=== PATIENT | male | born 1970 | race Caucasian/White ===

== ENCOUNTER 2017-01-15 18:12 | Emergency (ER) | payer BC ==
[~2017-01-15] VITALS: Ht 177.8 cm; Wt 91.0 kg
[2017-01-15 18:13] VITALS: Ht 177.8 cm; Wt 91.0 kg
[2017-01-15] MEDS ORDERED: ONDANSETRON INJ 2 MG/ML 2 ML VIAL IV STA (18:22)
[2017-01-15] MEDS ORDERED: MoRPHine SULFATE 4 MG/ML 1 ML CARP\\VIAL IV STA ×4 (18:22→21:41)
[2017-01-15 18:44] LABS: BASO % 0.1 %; BASO ABS # 0.01 K/uL (0-0.2); COMPLETE YES; EOS % 0.2 %; HEMATOCRIT 43.3 % (42-52); IG% 0.2 %; LYMPH % 8.5 %; LYMPH ABS # 0.85 K/uL (1.2-3.4); MEAN CELL VOLUME 85.7 fL (80-100); MEAN CORPUSCULAR HEMOGLOBIN 30.3 pg (25-34); MEAN CORPUSCULAR HGB CONC 35.3 g/dl (32-36); MEAN PLATELET VOLUME 9.8 fL (7.4-10.4); MONO % 7.8 %; NEUT % 83.2 %; PLATELET COUNT 201 K/uL (130-400); RED BLOOD COUNT 5.05 M/uL (4.7-6.1); WHITE BLOOD COUNT 10.03 K/uL (4.8-10.8)
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
[2017-01-15 19:01] LABS: BUN/CREATININE RATIO 15.1 (10-20); CALCIUM 9.6 mg/dl (8.5-10.1); CREATININE 1.4 mg/dl (0.60-1.40); POTASSIUM 3.7 mmol/L (3.5-5.1)
--- NOTE | 2017-01-15 19:06 | DIAGNOSTIC IMAGING REPORT ---
CT FACIAL BONES-MXILLOFAC WITHOUT CT DOSE: 1175.48 mGy.cm CLINICAL HISTORY: Facial pain status post trauma COMPARISON STUDY: No previous studies for comparison. TECHNIQUE: Helical images were acquired in the transverse plane. The study was reviewed and analyzed on the independent 3-D workstation. The pterygoid plates appear intact. There is an acute fracture of the right zygomatic arch which is mildly depressed. The zygomatic arches fractures in 3 places. There is a fracture of the zygomaticomaxillary suture. The globes appear intact. There is a droplet of right-sided orbital emphysema. There is a fracture involving the lateral wall of the right maxillary sinus. There is a fracture involving the lateral wall of the right orbit which is mildly depressed. This abuts the lateral rectus muscle. There is a right orbital floor fracture with 2.8 mm of maximal depression. The mandibular condyles appear intact. There is fluid within the right inferior mastoid air cells. IMPRESSION: 1. Mildly depressed right zygomatic arch fracture which is fractured in 3 places 2. Fracture the right zygomaticomaxillary suture 3. Fracture involving the lateral wall of the right maxillary sinus 4. Right orbital floor fracture with 2.8 mm of maximal depression 5. Mildly depressed fracture involving the lateral wall the right orbit. The fracture fragment abuts the lateral rectus muscle. Electronically signed by: Eugenio Gary M.D. 01/15/2017 7:05 PM Dictated Date/Time: 01/15/2017 6:59 PM
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
[2017-01-15] MEDS ORDERED: SODIUM CHLORIDE 0.9% 1000ML 1,000 ML IV STA (19:26)
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
[2017-01-15] MEDS ORDERED: AMOXICIL/CLAVU 875MG HOME PACK PO ONE (21:45)
[2017-01-15] MEDS ORDERED: OXYCODONE IR HOME PACK PO ONE ×2 (21:45→22:15)
[2017-01-15] MEDS ORDERED: AMOX875T PO (21:58)
[2017-01-15] MEDS ORDERED: OXYC1TAB3 PO (21:58)
[2017-01-15 22:36] VITALS: BP 132/82; PULSE 63; TEMP 36.9; O2SAT 97
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
== END 2017-01-15 22:37 | disposition home or self-care (01) ==
LOC: C.EDB 18:14 → C.EDA 22:37
DX: W50.0XXA Accidental hit or strike by another person, initial encounter (principal); S02.92XA Unspecified fracture of facial bones, initial encounter for closed fracture; S02.81XA Fracture of other specified skull and facial bones, right side, initial encounter for closed fracture